=== PATIENT | male | born 1995 | race Caucasian/White ===

== ENCOUNTER → 2021-06-18 | Outpatient (CLI) | payer BC ==
[~2021-06-18] MED LIST: BACTRIM DS 8001 TA1 PO; KEFLEX500 MG PO; TYLENOL W/CODEI1 TA2 PO; [UNRECOGNIZED DRUG - OTHER] PO
== END | disposition home or self-care (01) ==
LOC: US 07:14
PROVIDERS: ATTEND Physician Assistant
DX: R74.8 Abnormal levels of other serum enzymes (principal)